=== PATIENT | male | born 2005 | race Hispanic/Latino ===

== ENCOUNTER 2025-08-12 16:56 | Emergency (ER) | payer OTHER, SELFPAY ==
[2025-08-12 16:56] VITALS: BP 155/94; PULSE 72; RESP 16; TEMP 36.8; O2SAT 99
--- NOTE | 2025-08-12 17:33 | PC.NURSE ---
I spoke with DR Kasper,Latoya EXCAVATION LABORER and juan pt can be classified as moderate. Q15 minute checks
[2025-08-12 17:57] LABS: Add Manual Diff / Slide Review NO; Hematocrit 44.0 % (41-53); Hemoglobin 15.1 g/dL (13.5-17.5); Lymphocytes Absolute Auto 1100 /uL (1100-4500); Mean Corpuscular HGB Conc 34.3 % (30-36); Mean Corpuscular Hemoglobin 29.3 PG (26-34); Mean Corpuscular Volume 85.3 fL (80-100); Platelet Count 259 X10^3/uL (150-400)
[2025-08-12 18:03] LABS: Alanine Aminotransferase 10 IU/L (<50); Albumin 5.5 g/dL (3.5-5.0); Albumin Globulin Ratio 1.7 (1.0-2.8); Alkaline Phosphatase 106 U/L (38-126); Blood Urea Nitrogen 8 mg/dL (9-20); Calcium 9.6 mg/dL (8.4-10.2); Carbon Dioxide 28 mmol/L (22-32); Chloride 102 mmol/L (98-107); Estimated Glomerular Filt Rate > 60 mL/min (>60); Ethanol (ETOH) < 10 mg/dL (<10); Globulin 3.3 g/dL (1.7-4.1); Glucose 100 mg/dL (70-99); HEMOLYSIS < 15 (0-50); Potassium 3.6 mmol/L (3.4-5.1); Sodium 142 mmol/L (137-145); Total Protein 8.8 g/dL (6.3-8.2)
--- NOTE | 2025-08-12 18:14 | CM.SWNOTE ---
ED MANAGER CREDIT COLLECTIONS Assessment MANAGER CREDIT COLLECTIONS - Netting Weaver Assessment MANAGER CREDIT COLLECTIONS/Netting Weaver Assessment Time Spent with Patient Start date 08/12/25 Visit Start Time 16:55 End date 08/12/25 Visit End Time 17:30 Total time Care 25 minutes Management spent on patient visit-in minutes Mental Health Screening Include Onset, Duration, Intensity Presenting Problem Patient presents to ED via BLS due to concern for recent self harm, SI and hx of Depression. Precipitating Event( Patient was talking to a friend today and endorsed his s) hx of SI and recent self harm. Patient doesn't typically open up and talk about his emotions. Patient states that he gets anxious about going to work , does not feel like the work he is doing is what he signed up for. 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 Patient endorses that he has had a difficulty relationship and poor communication with his mother and left his visit home with mother early because it was not going well. Patient endorses he has been experiencing SI and depression over the last few years since the loss of both of his grandfathers. Patient re-visits conversations he has had with his grandfather and carries a lot of guilt with him. Patient Strengths Patient has good friends as supports. Current Behavioral No current providers Health Provider(s) Include Facility, Provider, Ph. # Psych. Hx Mental Patient endorses hx of Depression, SI and suicide Health and Chemical attempts. Patient denies formal dx of Depression and Dependency denies hx of any medication. Patient endorses hx of ETOH use and hx of using shrooms . Patient endorses he experienced a bad trip when he had hallucinations of seeing his grandfather who . Family Hx of Patient endorses he was raised to not talk about Behavioral Abuse emotions. Psychiatric No hx Hospitalizations ( date(s)/location) Psychosocial Patient is 20 y/o male who resides in the [employer] in [place]. Patient has some friends as Support Systems supports. 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 Legal Concerns Legal Matters - None reported Outstanding Issues Mental Status Orientation (Person/ A/Ox4 Place/Time) Stated Mood not sure what's wrong Affect (Congruent flat with Mood?) Thought Content - Patient denies visual or auditory hallucinations or Specify/Describe paranoia. Obsessions, Delusions, Hallucinations Thought Processes ( coherent Logical-Coherent- Goal Directed- Detailed-Tangential- Circumstantial- Logical-Disorganized -Thought Blocking) Speech (Normal-Slow- soft Afokmpq-Nungx-Szha- Loud-Pressured) Motor (Normal- normal Rjrtlgigz-Lwms-Lanhv ) Insight (Good-Fair- fair Poor/Limited) Judgement (Good-Fair fair -Poor/Limited) Impulse Control ( adequate Adequate-Impaired) Memory (Immediate- intact, not formally assessed Recent-Remote, Impaired-Intact) Concentration ( intact Intact-Impaired) Attention (Intact- intact Impaired) Behavior ( appropriate Appropriate- Inappropriate) Additional Comment Patient presents as calm, cooperative and communicative Risk Assessment Suicidal Ideation ( No Plan) Homicidal Ideation ( No Plan) Comment Patient denies current SI and denies HI. Patient endorses frequent and re-occurring passive SI, recent self harm the other night when he cut himself. Patient denies any current intent or plans to kill self . Patient endorses he often thinks about what he would or wouldn't do to kill himself. Patient endorses he fantasizes suicide. Patient endorses hx of two attempts this year most recently in April when he had intent to put a bag over his head and suffocate himself. Patient states he stopped himself after listening to music. Patient endorses intent to by carbon monoxide poisoning earlier in the year but stopped himself from proceeding with this plan. Intervention Intervention MANAGER CREDIT COLLECTIONS enters triage room to meet with patient, present in triage is patient and apparel designer. Patient endorses his struggles with depression, SI, and grief in the last few years while concurrently starting his career in the and expressing difficulty talking about his mental health and grief. Patient endorses recent self harm the other day when he was having an off day, patient endorses that he told his friend about his mental health and previous struggles and that is what led to the 911 call and patient's presentation to the ED. Patient was not able to contract for safety upon d/c but states he does not have current SI and can be safe at the hospital. MANAGER CREDIT COLLECTIONS discusses inpatient hospitalization and patient is in agreement with this plan, patient is not open to outpatient MH at this time. It is the opinion of this MANAGER CREDIT COLLECTIONS that patient would benefit from and be appropriate for inpatient hospitalization for safety, crisis stabilization and medication management. MANAGER CREDIT COLLECTIONS reviews patient with ED provider who indicates agreement and understanding. Plan RA Plan MANAGER CREDIT COLLECTIONS to contact [facility] and seek placement for patient upon medical clearance. Latoya Lucas, PODIATRIST ORTHOPEDIC
--- NOTE | 2025-08-12 18:20 | ED_ITS ---
HPI - Psych General Chief Complaint: Psychiatric Symptoms Stated Complaint: SI Time Seen by Provider: 08/12/25 17:28 Source: patient and EMS Mode of arrival: EMS History of Present Illness HPI Narrative: Patient is a 20-year-old male without past medical history presenting today with suicidal ideations. He is active in the . Has had escalating suicidal thoughts over last couple of months. In April thought of a plan with carbon monoxide poisoning the 2nd time thought of plan with bag over his head in this week does not have a specific plan does not have a specific plan today but yesterday had definite thoughts of hurting himself. Also reports of cutting wrist this week as well. 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 He reports no suicidal ideations today however has had escalating thoughts over the last couple of months. Related Data Allergies Allergy/AdvReac Type Severity Reaction Status Date / Time No Known Drug Allergies Allergy Verified 08/12/25 18:13 Patient History Social History Smoking Status: Never smoker Smoking Status: Never smoker Exam Initial Vital Signs Initial Vital Signs: Vital Signs Temperature 98.2 F 08/12/25 16:56 Pulse Rate 72 08/12/25 16:56 Respiratory Rate 16 08/12/25 16:56 Blood Pressure 155/94 H 08/12/25 16:56 Pulse Oximetry 99 08/12/25 16:56 Oxygen Delivery Method Room Air 08/12/25 16:56 GENERAL: Well-appearing, well-nourished and in no acute distress. CARDIOVASCULAR: peripheral pulses in tact, cap refill <2 sec RESPIRATORY: No respiratory distress, speaks in full sentences without difficulty EXTREMITIES: Normal range of motion, no clubbing or edema. Neurovascularly intact NEUROLOGICAL: Cranial nerves II through XII grossly intact. Normal gait and speech. SKIN: Warm, dry, no petechiae, no rashes or lesions. Course Orders Ordered: ED Orders 08/12/25 17:27 Consult to ESTHETICIAN/SPA COORDINATOR - Service Loss Control Consultant Stat 08/12/25 17:42 Complete Blood Count AUTO DIFF Stat Comprehensive Metabolic Panel Stat Ethanol (ETOH) Stat TSH w/ Reflex to FT4 Stat 08/12/25 17:55 Urine Drug Screen, Rapid Stat Vital Signs Vital signs: Vital Signs - 8 hr 08/12/25 16:56 08/12/25 19:32 Temperature 98.2 F Pulse Rate 72 63 Respiratory Rate 16 16 Blood Pressure 155/94 H 149/90 H Pulse Oximetry 99 98 Oxygen Delivery Method Room Air Room Air MDM - Psych Lab Data 08/12/25 17:42 08/12/25 17:42 Labs: Lab Results 08/12/25 08/12/25 Range/Units 17:42 17:55 WBC 7.3 (4.5-11.0) X10^3/uL RBC 5.15 (4.5-5.9) X10^6/uL Hgb 15.1 (13.5-17.5) g/dL Hct 44.0 (41-53) % MCV 85.3 (80-100) fL MCH 29.3 (26-34) PG MCHC 34.3 (30-36) % RDW 13.0 (11.6-14.8) % Plt Count 259 (150-400) X10^3/uL Neut % (Auto) 78.9 H (50-75) % Lymph % (Auto) 15.1 L (25-40) % Nelson % (Auto) 5.0 (3-14) % Eos % (Auto) 0.4 L (2-4) % Baso % (Auto) 0.6 (0-2) % Neut # (Auto) 5800 (9120-0407) /uL Lymph # (Auto) 1100 (5848-2793) /uL Nelson # (Auto) 400 (0-900) /uL Eos # (Auto) 0 (0-450) /uL Baso # (Auto) 0 (0-100) /uL Sodium 142 (137-145) mmol/L Potassium 3.6 (3.4-5.1) mmol/L Chloride 102 (98-107) mmol/L Carbon Dioxide 28 (22-32) mmol/L BUN 8 L (9-20) mg/dL Creatinine 0.86 (0.66-1.25) mg/dL Estimated GFR > 60 (>60) mL/min BUN/Creatinine Ratio 9.3 (6-22) Glucose 100 H (70-99) mg/dL Calcium 9.6 (8.4-10.2) mg/dL Total Bilirubin 0.5 (0.2-1.3) mg/dL AST 26 (17-59) IU/L ALT 10 (<50) IU/L Alkaline Phosphatase 106 (38-126) U/L Total Protein 8.8 H (6.3-8.2) g/dL Albumin 5.5 H (3.5-5.0) g/dL Globulin 3.3 (1.7-4.1) g/dL Albumin/Globulin Ratio 1.7 (1.0-2.8) TSH 1.48 (0.47-4.68) uIU/mL U Opiates 300ng/mL cut Negative (Negative) Ur Oxycodone Screen Negative (Negative) Urine Methadone Screen Negative (Negative) Ur Barbiturates Screen Negative (Negative) U Tricyclic Antidepress Negative (Negative) Ur Phencyclidine Scrn Negative (Negative) Ur Amphetamines Screen Negative (Negative) U Methamphetamines Scrn Negative (Negative) Ur MDMA Scrn (Ecstasy) Negative (Negative) U Benzodiazepines Scrn Negative (Negative) Urine Cocaine Screen Negative (Negative) U Marijuana (THC) Screen Negative (Negative) Urine pH Normal (Normal) Urine Specific Benedict Normal (Normal) Ethyl Alcohol < 10 (<10) mg/dL Ur Creatinine Normal (Normal) [facility] Narrative Medical decision making narrative: Patient is a 20-year-old male without past medical history or diagnosis presenting today with increasing suicidal ideations and thoughts. Has had escalating thoughts over last couple of months. Had an event this week triggering him. No current suicidal ideations but is voluntary and willing to go to med again for evaluation Blood work has been reviewed CBC no clinical significant abnormality CMP no electrolyte abnormality or DEYSI Toxicology is negative Patient medically cleared Patient evaluated by social work 1850 Dr. Juarez psych accepts patient at [facility] Discharge Plan Departure Patient Disposition: Xfer Psychiatric Hosp Clinical Impression: Suicidal ideation Referrals: Provider,Minh SAEZ [Primary Care Provider, Family Practice]
[2025-08-12 18:22] LABS: UR Morphine/Opiate cutoff 300 Negative (Negative); Ur Specific Gravity Normal (Normal); Urine MDMA Negative (Negative); Urine Methamphetamines Negative (Negative); Urine Tetrahydrocannabinol Negative (Negative); Urine Tricyclic Antidepressant Negative (Negative)
[2025-08-12 19:03] LABS: TSH w/ Reflex to FT4 1.48 uIU/mL (0.47-4.68)
--- NOTE | 2025-08-12 19:08 | CM.SWNOTE ---
ED MUSHROOM SPAWN MAKER Note MUSHROOM SPAWN MAKER calls [facility], it is reported that they have beds. MUSHROOM SPAWN MAKER faxes clinicals for review. [facility] provider Dr. Juarez speaks with ED provider Dr. Schofield and it is reported that patient is accepted at their unit and can arrive at any time. RN-RN is [phone]. MUSHROOM SPAWN MAKER calls [facility] and sets up transport for a continuous pickling line pickler helper time of 1929. With patient's permission MUSHROOM SPAWN MAKER calls [facility] and endorses plan of care and patient's transport to [facility]. Plan: Patient to transfer to [facility] this evening via BLS for inpatient hospitalization. Latoya Lucas, NUCLEAR ENGINEER
[2025-08-12 19:32] VITALS: BP 149/90; PULSE 63; RESP 16; O2SAT 98
== END 2025-08-12 19:46 ==
PROVIDERS: Emergency Medicine; Emergency Provider Emergency Medicine
DX: R45.851 Suicidal ideations (principal)
CPT/HCPCS: 80053; 80305; 80320; 84443; 85025; 99284